=== PATIENT | female | born 1990 | race Caucasian/White ===

== ENCOUNTER 2016-10-05 03:38 | Inpatient (IN) | payer OTHER ==
[2016-10-05] MEDS ORDERED: Acetaminophen TAB* 325 MG PO PRN (04:15)
[2016-10-05] MEDS ORDERED: Glycerin ADULT SUPP PR PRN (04:15)
[2016-10-05] MEDS ORDERED: Dibucaine 1% 28.35 GM TUBE PR PRN (04:15)
[2016-10-05] MEDS ORDERED: Witch Hazel PAD* JAR TOPICAL PRN (04:15)
[2016-10-05] MEDS ORDERED: Ibuprofen TAB* 600 MG PO PRN (04:15)
[2016-10-05] MEDS ORDERED: Measles, Mumps,Rubella VACC* 0.5 ML/VIAL SUBCUT ONE (04:15)
[2016-10-05] MEDS ORDERED: Tetan/Diph/Pertus SYR(Tdap)* 0.5 ML SYR(BOOSTRIX) use SYR IM ONE (04:15)
[2016-10-05] MEDS ORDERED: Simethicone CHEW TAB* 80 MG PO SCH (08:30)
[2016-10-05] MEDS: Docusate CAP* 100 MG PO SCH ×3 (09:25→21:40)
--- NOTE | 2016-10-05 22:37 | PTEDU ---
Patient Name: JAMIL SUMNER JAMIL SUMNER selected video: Never Ever Shake a Baby to view on 10/05/2016 at 10:37:26 PM [facility] [id number]
[2016-10-06 06:44] LABS: Hematocrit 42 % (35-47); Hemoglobin 13.8 g/dl (12.0-16.0); Mean Corpuscular HGB Conc 33 g/dl (31-36); Mean Corpuscular Hemoglobin 33 pg (27-31); Mean Corpuscular Volume 100 fL (80-97); Mean Platelet Volume 10 um3 (7.4-10.4); Red Blood Count 4.17 10^6/ul (4.0-5.4); Red Cell Distribution Width 13 % (10.5-15); White Blood Count 13.2 10^3/ul (3.5-10.8)
[2016-10-06] MEDS: Docusate CAP* 100 MG PO SCH (08:15)
[2016-10-06] MEDS ORDERED: Ferrous Gluconate TAB* 324 MG TAB PO SCH (09:00)
[2016-10-07 07:42] VITALS: BP 133/90
== END 2016-10-07 10:35 | disposition home or self-care (01) | DRG 560 ==
LOC: MCHOBOUT 03:38 → MCHOB 03:44
PROVIDERS: ADMIT Midwife; ATTEND Midwife
PROC: 10E0XZZ Delivery of Products of Conception, External Approach (ICD-10-PCS; principal; 2016-10-05)
DX: O99.824 Streptococcus B carrier state complicating childbirth (principal); O48.0 Post-term pregnancy; O62.3 Precipitate labor; Z3A.40 40 weeks gestation of pregnancy; Z37.0 Single live birth
CPT/HCPCS: 36415; 85025; A9270-GY

== ENCOUNTER 2018-11-02 08:19 | Inpatient (IN) | payer MEDICAID, OTHER ==
[2018-11-02] MEDS ORDERED: Buffered Lidocaine 1% SYRIN* 1 ML/SYRINGE INTRADERM ONE (08:49)
[2018-11-02] MEDS ORDERED: Lactated Ringers 1000 ML Bag* 1,000 ML IV ONE (08:49)
[2018-11-02] MEDS ORDERED: Lactated Ringers 1000 ML Bag* 1,000 ML IV SCH ×2 (09:00→15:00)
--- NOTE | 2018-11-02 09:07 | HP ---
General Information - Reason for Visit 28yo, , IUP@40+2, here in labor - General Information Maternal Age: 28 Grav: 2 Para: 1 SAB: 0 IEA: 0 Estimated Due Date: 10/31/18 Determined By: LMP Gestational Age in Weeks/Days: 40+2 Maternal Blood Type and Rh: A Positive - Results this Serology/RPR Result: Non-Reactive Rubella Result: Non-Immune HBsAg Result: Negative HIV Result: Negative GBS Culture Result: Negative Past Medical History Delivery History: Hx Uncomplicated Vaginal Delivery - Hx of SGA baby (4lbs 10oz@ 40 wks) Pertinent Past Medical History: Non-Contributory Pertinent Past Surgical History: None Family History Comment: Father: pancreatitis Mother: TIN (age 58) MGM: AAA MGF: OR - Antepartal Records Antepartal Records: Reviewed, Uncomplicated - Rubella non-immune; growth at 35wk (EFW 4lbs 11oz) Review of Systems Constitutional: Uncomfortable CV Complaint: No Respiratory: Shortness of Breath: No Gastrointestinal: No Nausea/Vomiting, Normal Bowel Movement Genitourinary: No Dysuria, No Bleeding, No Leaking Fluid Musculoskeletal: Contractions Neurological: No Headache, No Visual Changes Movement: Normal Exam Allergies/Adverse Reactions: Allergies MS Cefaclor [From Ceclor] Allergy (Verified 10/05/16 05:54) Unknown Reaction Details Temp 98.2, 99%, RR 18, 126/77, HR 78 - Measurements Height: 5 ft Weight: 136 lb Weight in lbs: 136.412710 Body Mass Index (BMI): 26.5 Pre- Weight: 100 lb Weight Gained This : 36 lbs and 0 ozs - Exam Breast: Breast Exam Deferred Extremities: No Edema Rectal: Rectal Exam Deferred - PE deferred per pt preference. Targeted Exam Findings Estimated Weight: 7lbs Cervical Exam: 3cm, 4cm Effacement: 80% Station: 0 Presenting Part: Vertex Membrane Status: Intact Bleeding/Discharge: None EFM Findings - External Monitor Findings Baseline Heart Rate: 120 External Monitor Findings: Accelerations Present, No Pattern of Variable or Late Decelerations, Variability Moderate External Monitor Findings Comment: No evidence of metabolic acidemia Contractions: Regular, Moderate, Strong, 45-90 Seconds - q3-4 minutes Assessment/Plan - Assessment 28yo, , IUP@40+2 in active labor GBS negative, A+ Hx of SGA baby; normal growth this - Plan Plan: Admit - Anticipate Vaginal Delivery Plan Comment: Admit to L&D Pt desires minimal intervention VE prn Anticipate - Date/Time of Admission Date of Admission: 11/02/18 Time of Admission: 09:20
[2018-11-02] MEDS ORDERED: Acetaminophen TAB* 325 MG PO PRN (14:30)
[2018-11-02] MEDS ORDERED: Ibuprofen TAB* 600 MG PO PRN (14:30)
[2018-11-02] MEDS ORDERED: Witch Hazel PAD* JAR TOPICAL PRN (14:30)
[2018-11-02] MEDS ORDERED: Dibucaine 1% 28.35 GM TUBE PR PRN (14:30)
[2018-11-02] MEDS ORDERED: Glycerin ADULT SUPP PR PRN (14:30)
--- NOTE | 2018-11-02 15:43 | PROCNOTE ---
[facility] OB: Delivery Note - Delivery A Date of : 11/02/18 Time of : 13:59 [place] Sex: Male Weight at : 6 lb 8 oz Score 1 Minute: 9 Score 5 Minutes: 9 Gestational Age in Weeks and Days at Delivery: 40 Weeks and 2 Days Delivery Method: Spontaneous Vaginal Labor: Spontaneous Did Patient attempt ?: N/A, No Previous Amniotic Fluid: Clear Estimated Blood Loss: 200 Anesthesia/Analgesia: None Delivered By: Rubina Pinto Nursery Level of Nursery: Regular/Bedside - Perineum Perineal Injury: None/Intact - Events Delivery Events of Note: None Apply - Additional Delivery Notes Additional Delivery Notes: 28 yo G2, now P2 at 40+2 weeks admitted in active labor. Progressed to complete and complete. Pt began pushing spontaneously at 1330, with of liveborn male at 1359. OA to BECKY, shoulders followed easily. Terminal meconium noted. Infant to mother's chest with spontaneous cry, mother declined drying and stimulating baby. 's 9 and 9. Delayed cord clamping, cord then cut by FOB. Spontaneous olga delivery of intact placenta at 1409. Fundus firm with massage. EBL 200 mL. After careful inspection the perineum was noted to be intact. . Mother and infant in stable condition at time of note.
[2018-11-02 17:19] LABS: Urine Benzodiazepine Screen None Detected (None Detect); Urine Opiates Screen None Detected (None Detect)
[2018-11-02] MEDS ORDERED: Simethicone TAB* 80 MG TAB.CHEW PO SCH (17:30)
[2018-11-03 07:18] LABS: ABS Eosinophils 0.1 10^3/ul (0-0.6); ABS Lymphocytes 3.3 10^3/ul (1.0-4.8); ABS Monocytes 1.5 10^3/ul (0-0.8); ABS Neutrophils 9.5 10^3/ul (1.5-7.7); Eosinophil % 0.4 %; Hematocrit 39 % (35-47); Hemoglobin 13.1 g/dL (12.0-16.0); Mean Corpuscular HGB Conc 34 g/dL (31-36); Mean Corpuscular Hemoglobin 33 pg (27-31); Mean Corpuscular Volume 98 fL (80-97); Mean Platelet Volume 10.1 fL (7.4-10.4); Nucleated Red Blood Cells % 0.1; Platelet Count 271 10^3/uL (150-450); Red Blood Count 3.97 10^6 /uL (3.70-4.87); Red Cell Distribution Width 13 % (10-15); White Blood Count 14.4 10^3/uL (3.5-10.8)
[2018-11-03 08:46] VITALS: BP 104/65
[2018-11-03] MEDS ORDERED: Ferrous Gluconate TAB* 324 MG TAB PO SCH (09:00)
[2018-11-03] MEDS: Docusate CAP* 100 MG PO SCH (15:22)
== END 2018-11-03 14:54 | disposition home or self-care (01) | DRG 560 ==
LOC: MCHOBOUT 08:19 → MCHOB 08:48
PROVIDERS: ADMIT Advanced Practice Midwife; ATTEND Advanced Practice Midwife
PROC: 10E0XZZ Delivery of Products of Conception, External Approach (ICD-10-PCS; principal; 2018-11-02)
PROC: 4A1HXCZ Monitoring of Products of Conception, Cardiac Rate, External Approach (ICD-10-PCS; 2018-11-02)
DX: O48.0 Post-term pregnancy (principal); Z37.0 Single live birth; Z3A.40 40 weeks gestation of pregnancy; O77.0 Labor and delivery complicated by meconium in amniotic fluid; Z88.0 Allergy status to penicillin; Z88.8 Allergy status to other drugs, medicaments and biological substances
CPT/HCPCS: 36415; 80307; 85025; A9270-GY